=== PATIENT | female | born 1980 | race Caucasian/White ===

== ENCOUNTER 2021-02-22 12:15 | Inpatient (IN) | payer OTHER ==
[2021-02-22] MEDS ORDERED: Sodium Chloride 0.9% 10 ML Syringe FLUSH PRN (13:35)
[2021-02-22] MEDS ORDERED: Sodium Chloride 0.9% 2.5 ML Syringe FLUSH PRN (13:35)
[2021-02-22 14:36] LABS: BLOOD UREA NITROGEN,BUN 8 mg/dL (7.0-18.0); CHLORIDE,CL 96 mmol/L (98-107); GLUCOSE RANDOM 105 mg/dL (74-106); POTASSIUM,K 3.2 mmol/L (3.5-5.1); SODIUM,NA 135 mmol/L (136-145)
--- NOTE | 2021-02-22 14:49 | CR ---
INDICATION: COVID, hemoptysis. TECHNIQUE: Chest 1 view(s) COMPARISON: None. FINDINGS: Heart size is upper limits of normal. Diffuse patchy interstitial opacities bilaterally, right greater than left, consistent with COVID pneumonia. No significant pleural effusion, no definite pneumothorax. No acute chest wall abnormality. IMPRESSION: Diffuse patchy interstitial opacities bilaterally, right greater than left, consistent with COVID pneumonia. Dictated by Iraj Hudson MD @ 02/22/2021 2:47:43 PM (Electronically Signed)
[2021-02-22 14:53] LABS: CORONAVIRUS COVID-19 NAA POSITIVE (NEGATIVE); INFLUENZA A NAA NEGATIVE (NEGATIVE); INFLUENZA B NAA NEGATIVE (NEGATIVE)
--- NOTE | 2021-02-22 15:07 | EDM.PDOC ---
ED HPI GENERAL MEDICAL PROBLEM - General Chief Complaint: Respiratory Problem Stated Complaint: BLOOD IN MUCUS WHEN COUGHING Time Seen by Provider: 02/22/21 12:24 Source of Information: Reports: Patient History Limitations: Reports: No Limitations - History of Present Illness INITIAL COMMENTS - FREE TEXT/NARRATIVE: HISTORY AND PHYSICAL: History of present illness: Patient is a 40-year-old female who presents emergency room today with concern of worsening shortness of breath, fatigue, and blood-tinged sputum over the past 6 days. Patient states that she took an at home COVID-19 test and tested positive on Monday. Patient states that she has been having symptoms for a total of 6 days however. Patient states that she is vaccinated fully for Covid with Moderna back in May had her second vaccine but is due for a booster. Patient states that she is also had generalized body aches, intermittent fevers/chills, and low-grade headache. Patient states that she is also had a cough. Patient denies chest pain. Denies neck stiff ness, change in vision, syncope, or near syncope. Denies nausea, vomiting, abdominal pain, diarrhea, constipation, or dysuria. Has not noted any blood in urine or stool. Patient has been eating and drinking appropriately. Review of systems: As per history of present illness and below otherwise all systems reviewed and negative. Past medical history: As per history of present illness and as reviewed below otherwise noncontributory. Surgical history: As per history of present illness and as reviewed below otherwise noncontributory. Social history: See social history for further information Family history: As per history of present illness and as reviewed below otherwise noncontributory. Physical exam: General: Patient is alert, oriented, and in no acute distress. Patient sitting comfortably on exam table. Patient is hypoxic 86% on room air, placed on 3 L nasal cannula and satting 94%. Otherwise, vitally stable and reviewed by me. HEENT: Atraumatic, normocephalic, pupils equal and reactive bilaterally, negative for conjunctival pallor or scleral icterus, mucous membranes moist, throat clear, neck supple, nontender, trachea midline. No drooling or trismus noted. No meningeal signs. No hot potato voice noted. Lungs: Dry cough on exam with blood-tinged sputum. Otherwise, clear to auscultation, breath sounds equal bilaterally, chest nontender. Heart: S1S2, regular rate and rhythm without overt murmur Abdomen: Soft, nondistended, nontender. Negative for masses or hepatosplenomegaly. Negative for costovertebral tenderness. Pelvis: Stable nontender. Genitourinary: Deferred. Rectal: Deferred. Skin: Intact, warm, dry. No lesions or rashes noted. Extremities: Atraumatic, negative for cords or calf pain. Neurovascular unremarkable. Neuro: Awake, alert, oriented. Cranial nerves II through XII unremarkable. Cerebellum unremarkable. Motor and sensory unremarkable throughout. Exam nonfocal. Medical Decision Making: Patient is a 40-year-old female who presents emergency room today with concern of worsening shortness of breath, fatigue, cough, generalized body aches with concern of COVID-19 infection and blood-tinged sputum. Upon arrival to the ED, patient is hypoxic 86% on room air, she was placed on 3 L nasal cannula and satting 94%. She is otherwise breathing comfortably. She does not have a dry c ough on exam with blood-tinged sputum. Lungs are otherwise clear and exam remainder unremarkable. Will obtain cardiac evaluation, COVID-19/influenza testing, and reassess patient. See Dr. Montero's dictation for specific EKG interpretation. Otherwise, NSR without STEMI. CBC unremarkable. CMP shows mild hyponatremia at 135, hypokalemia at 3.2, and hypochloremia 96. Carbon dioxide slightly increased at 37. Corrected calcium mildly decreased at 8.1. AST elevated in isolation at 57. hCG negative. COVID-19 is positive. D-dimer is within normal limits. Chest x-ray shows diffuse patchy interstitial opacities bilaterally, right greater than left, consistent with Covid pneumonia. Upon reevaluation of patient, she remains vitally stable and comfortable on 3 L nasal cannula. Patient does drop back down to 8687% without oxygen. I did call and speak to the hospitalist on-call, Dr. Sanderson, and thoroughly discussed patient's case. Will admit to inpatient to Dr. Sanderson. Voices understanding and is agreeable to plan of care. Denies any further questions or concerns at this time. Diagnostics: EKG, CBC, CMP, Serum hcg, PT/INR/PTT, Ddimder, CXR, COVID/Flu Therapeutics: Remdesivir, Decadron Impression: COVID-19 pneumonia with hypoxia Plan: Admit to inpatient to Dr. Sanderson Definitive disposition and diagnosis as appropriate pending reevaluation and review of above. Headache Pain Score (Numeric/FACES): 5 - Related Data Allergies Allergy/AdvReac Type Severity Reaction Status Date / Time No Known Allergies Allergy Verified 02/22/21 12:47 Home Meds: Home Meds Escitalopram [Lexapro] 20 mg PO DAILY 02/22/21 [History] hydroCHLOROthiazide [Hydrochlorothiazide] 25 mg PO DAILY 02/22/21 [History] Past Medical History Psychiatric History: Reports: Other (See Below) Other Psychiatric History: Seasonal affective disorder - Infectious Disease History Infectious Disease History: Reports: Chicken Pox, Measles - Past Surgical History Female Surgical History: Reports: Hysterectomy Social & Family History - Family History Cardiac: Reports: Hypertension Endocrine/Metabolic: Reports: Diabetes, Type I - Caffeine Use Caffeine Use: Reports: Coffee - Recreational Drug Use Recreational Drug Use: No ED ROS GENERAL - Review of Systems Review Of Systems: Comprehensive ROS is negative, except as noted in HPI. ED EXAM, GENERAL - Physical Exam Exam: See Below (see dictation) Course - Vital Signs Last Recorded V/S: Last Vital Signs Temp 98.8 F 02/22/21 12:50 Pulse 93 02/22/21 12:50 Resp 18 02/22/21 12:50 BP 125/68 02/22/21 12:50 Pulse Ox 92 L 02/22/21 13:02 - Orders/Labs/Meds Orders: Active Orders 24 hr Category Date Time Status Admission Status [Patient Status] [ADT] Stat ADT 02/22/21 15:27 Ordered Cardiac Monitoring [RC] . DIRECTED Care 02/22/21 13:35 Active BILIRUBIN DIRECT [CHEM] DAILY Lab 02/22/21 15:15 Ordered BILIRUBIN DIRECT [CHEM] DAILY Lab 02/23/21 15:15 Ordered BILIRUBIN DIRECT [CHEM] DAILY Lab 02/24/21 15:15 Ordered BILIRUBIN DIRECT [CHEM] DAILY Lab 02/25/21 15:15 Ordered BILIRUBIN DIRECT [CHEM] DAILY Lab 02/26/21 15:15 Ordered COMPREHENSIVE METABOLIC PN,CMP [CHEM] DAILY Lab 02/22/21 15:15 Ordered COMPREHENSIVE METABOLIC PN,CMP [CHEM] DAILY Lab 02/23/21 15:15 Ordered COMPREHENSIVE METABOLIC PN,CMP [CHEM] DAILY Lab 02/24/21 15:15 Ordered COMPREHENSIVE METABOLIC PN,CMP [CHEM] DAILY Lab 02/25/21 15:15 Ordered COMPREHENSIVE METABOLIC PN,CMP [CHEM] DAILY Lab 02/26/21 15:15 Ordered Sodium Chloride 0.9% [Saline Flush] Med 02/22/21 13:35 Active 10 ml FLUSH ASDIRECTED PRN Sodium Chloride 0.9% [Saline Flush] Med 02/22/21 13:35 Active 2.5 ml FLUSH ASDIRECTED PRN Saline Lock Insert [OM.PC] Stat Oth 02/22/21 13:35 Ordered Medication Orders Sodium Chloride (Sodium Chloride 0.9% 10 Ml Syringe) 10 ml FLUSH ASDIRECTED PRN PRN Reason: Keep Vein Open Sodium Chloride (Sodium Chloride 0.9% 2.5 Ml Syringe) 2.5 ml FLUSH ASDIRECTED PRN PRN Reason: Keep Vein Open Labs: Laboratory Tests 02/22/21 02/22/21 02/22/21 Range/Units 13:59 13:59 13:59 WBC 5.79 (4.0-11.0) K/uL RBC 4.58 (4.30-5.90) M/uL Hgb 13.1 (12.0-16.0) g/dL Hct 40.6 (36.0-46.0) % MCV 88.6 (80.0-98.0) fL MCH 28.6 (27.0-32.0) pg MCHC 32.3 (31.0-37.0) g/dL RDW Std Deviation 49.3 (28.0-62.0) fl RDW Coeff of Wes 15 (11.0-15.0) % Plt Count 319 (150-400) K/uL MPV 9.90 (7.40-12.00) fL Neut % (Auto) 61.8 (48.0-80.0) % Lymph % (Auto) 33.7 (16.0-40.0) % [place] % (Auto) 4.3 (0.0-15.0) % Eos % (Auto) 0.0 (0.0-7.0) % Baso % (Auto) 0.2 (0.0-1.5) % Neut # (Auto) 3.6 (1.4-5.7) K/uL Lymph # (Auto) 2.0 (0.6-2.4) K/uL [place] # (Auto) 0.3 (0.0-0.8) K/uL Eos # (Auto) 0.0 (0.0-0.7) K/uL Baso # (Auto) 0.0 (0.0-0.1) K/uL Nucleated RBC % 0.0 /100WBC Nucleated RBCs # 0 K/uL INR APTT (18.6-31.3) SEC D-Dimer, Quantitative 0.43 (0.0-0.50) mg/L FEU Sodium 135 L (136-145) mmol/L Potassium 3.2 L (3.5-5.1) mmol/L Chloride 96 L (98-107) mmol/L Carbon Dioxide 37.0 H (21.0-32.0) mmol/L BUN 8 (7.0-18.0) mg/dL Creatinine 0.7 (0.6-1.0) mg/dL Est Cr Clr Drug Dosing 109.41 mL/min Estimated GFR (MDRD) > 60.0 ml/min Glucose 105 (74-106) mg/dL Calcium 7.9 L (8.5-10.1) mg/dL Total Bilirubin 0.4 (0.2-1.0) mg/dL AST 57 H (15-37) IU/L ALT 59 (14-63) IU/L Alkaline Phosphatase 103 (46-116) U/L Total Protein 7.7 (6.4-8.2) g/dL Albumin 3.2 L (3.4-5.0) g/dL Globulin 4.5 H (2.6-4.0) g/dL Albumin/Globulin Ratio 0.7 L (0.9-1.6) HCG, Qual (NEG) Influenza Type A RNA (NEGATIVE) Influenza Type B RNA (NEGATIVE) SARS-CoV-2 RNA (BING) (NEGATIVE) 02/22/21 02/22/21 02/22/21 Range/Units 13:59 13:59 14:01 WBC (4.0-11.0) K/uL RBC (4.30-5.90) M/uL Hgb (12.0-16.0) g/dL Hct (36.0-46.0) % MCV (80.0-98.0) fL MCH (27.0-32.0) pg MCHC (31.0-37.0) g/dL RDW Std Deviation (28.0-62.0) fl RDW Coeff of Wes (11.0-15.0) % Plt Count (150-400) K/uL MPV (7.40-12.00) fL Neut % (Auto) (48.0-80.0) % Lymph % (Auto) (16.0-40.0) % [place] % (Auto) (0.0-15.0) % Eos % (Auto) (0.0-7.0) % Baso % (Auto) (0.0-1.5) % Neut # (Auto) (1.4-5.7) K/uL Lymph # (Auto) (0.6-2.4) K/uL [place] # (Auto) (0.0-0.8) K/uL Eos # (Auto) (0.0-0.7) K/uL Baso # (Auto) (0.0-0.1) K/uL Nucleated RBC % /100WBC Nucleated RBCs # K/uL INR 1.01 APTT 30.8 (18.6-31.3) SEC D-Dimer, Quantitative (0.0-0.50) mg/L FEU Sodium (136-145) mmol/L Potassium (3.5-5.1) mmol/L Chloride (98-107) mmol/L Carbon Dioxide (21.0-32.0) mmol/L BUN (7.0-18.0) mg/dL Creatinine (0.6-1.0) mg/dL Est Cr Clr Drug Dosing mL/min Estimated GFR (MDRD) ml/min Glucose (74-106) mg/dL Calcium (8.5-10.1) mg/dL Total Bilirubin (0.2-1.0) mg/dL AST (15-37) IU/L ALT (14-63) IU/L Alkaline Phosphatase (46-116) U/L Total Protein (6.4-8.2) g/dL Albumin (3.4-5.0) g/dL Globulin (2.6-4.0) g/dL Albumin/Globulin Ratio (0.9-1.6) HCG, Qual NEGATIVE (NEG) Influenza Type A RNA NEGATIVE (NEGATIVE) Influenza Type B RNA NEGATIVE (NEGATIVE) SARS-CoV-2 RNA (BING) POSITIVE H (NEGATIVE) Meds: Medications Generic Name Dose Route Start Last Admin Trade Name Saqibq PRN Reason Stop Dose Admin Sodium Chloride 10 ml 02/22/21 13:35 Sodium Chloride 0.9% 10 Ml Syringe FLUSH ASDIRECTED PRN Keep Vein Open Sodium Chloride 2.5 ml 02/22/21 13:35 Sodium Chloride 0.9% 2.5 Ml Syringe FLUSH ASDIRECTED PRN Keep Vein Open Discontinued Medications Generic Name Dose Route Start Last Admin Trade Name Freq PRN Reason Stop Dose Admin Dexamethasone 10 mg 02/22/21 15:13 Dexamethasone 10 Mg/Ml Sdv IVPUSH 02/22/21 15:14 ONETIME ONE Remdesivir 200 mg/ Sodium 250 mls @ 250 mls/hr 02/22/21 15:13 Chloride IV 02/22/21 15:14 ONETIME ONE Departure - Departure Time of Disposition: 15:06 Disposition: Admitted As Inpatient 64 Clinical Impression: Pneumonia due to COVID-19 virus, Hypoxia - Discharge Information Forms: ED Department Discharge Additional Instructions: Sepsis Event Note (ED) - Evaluation Sepsis Screening Result: No Definite Risk - Focused Exam Vital Signs: Vital Signs Temp Pulse Resp BP Pulse Ox 02/22/21 13:02 92 L 02/22/21 13:00 88 L 02/22/21 12:50 98.8 F 93 18 125/68 92 L - My Orders Last 24 Hours: My Active Orders 02/22/21 13:35 Cardiac Monitoring [RC] . DIRECTED Sodium Chloride 0.9% [Saline Flush] 10 ml FLUSH ASDIRECTED PRN Sodium Chloride 0.9% [Saline Flush] 2.5 ml FLUSH ASDIRECTED PRN Saline Lock Insert [OM.PC] Stat 02/22/21 15:15 BILIRUBIN DIRECT [CHEM] DAILY COMPREHENSIVE METABOLIC PN,CMP [CHEM] DAILY 02/22/21 15:27 Admission Status [Patient Status] [ADT] Stat 02/23/21 15:15 BILIRUBIN DIRECT [CHEM] DAILY COMPREHENSIVE METABOLIC PN,CMP [CHEM] DAILY 02/24/21 15:15 BILIRUBIN DIRECT [CHEM] DAILY COMPREHENSIVE METABOLIC PN,CMP [CHEM] DAILY 02/25/21 15:15 BILIRUBIN DIRECT [CHEM] DAILY COMPREHENSIVE METABOLIC PN,CMP [CHEM] DAILY 02/26/21 15:15 BILIRUBIN DIRECT [CHEM] DAILY COMPREHENSIVE METABOLIC PN,CMP [CHEM] DAILY - Assessment/Plan Last 24 Hours: My Active Orders 02/22/21 13:35 Cardiac Monitoring [RC] . DIRECTED Sodium Chloride 0.9% [Saline Flush] 10 ml FLUSH ASDIRECTED PRN Sodium Chloride 0.9% [Saline Flush] 2.5 ml FLUSH ASDIRECTED PRN Saline Lock Insert [OM.PC] Stat 02/22/21 15:15 BILIRUBIN DIRECT [CHEM] DAILY COMPREHENSIVE METABOLIC PN,CMP [CHEM] DAILY 02/22/21 15:27 Admission Status [Patient Status] [ADT] Stat 02/23/21 15:15 BILIRUBIN DIRECT [CHEM] DAILY COMPREHENSIVE METABOLIC PN,CMP [CHEM] DAILY 02/24/21 15:15 BILIRUBIN DIRECT [CHEM] DAILY COMPREHENSIVE METABOLIC PN,CMP [CHEM] DAILY 02/25/21 15:15 BILIRUBIN DIRECT [CHEM] DAILY COMPREHENSIVE METABOLIC PN,CMP [CHEM] DAILY 02/26/21 15:15 BILIRUBIN DIRECT [CHEM] DAILY COMPREHENSIVE METABOLIC PN,CMP [CHEM] DAILY
[2021-02-22] MEDS ORDERED: REMDESIVIR 200 MG in Sodium Chloride 0.9% 250 ML IV ONE (15:13)
[2021-02-22] MEDS ORDERED: Dexamethasone 10 MG/ML SDV IVPUSH ONE (15:13)
--- NOTE | 2021-02-22 15:24 | PCM.EKG ---
#1 Interpretation EKG Date: 02/22/21 Time: 13:45 Rhythm: NSR Rate (Beats/Min): 88 Wall: Normal P-Wave: Present QRS: Normal ST-T: Normal QT: Normal Comparison: NA - No Prior EKG EKG Interpretation Comments: Sinus Rhythm
--- NOTE | 2021-02-22 15:59 | PCM.HP.2 ---
H&P History of Present Illness - General Date of Service: 02/22/21 Admit Problem/Dx: Admission Diagnosis/Problem Admission Diagnosis/Problem Hypoxia - History of Present Illness Initial Comments - Free Text/Narative: 40-year-old female who is Covid positive presents to the ER complaining of worsening shortness of breath and fatigue. Patient tested positive on a home Covid test. SARS-CoV-2 test in the ER is positive. Patient also complains of sputum production for 6 days. Patient dorsal myalgias and fatigue. Patient is fully vaccinated with Moderna. Patient did not receive booster. Patient has fever/chills. Denies chest pain, palpitations, headaches, lightheadedness, LOC, N/V, abdominal pain, diarrhea. Oxygen saturation was 85% on RA. Patient is on 3L saturating >90%. Headache Pain Score (Numeric/FACES): 5 - Related Data Allergies/Adverse Reactions: Allergies Allergy/AdvReac Type Severity Reaction Status Date / Time No Known Allergies Allergy Verified 02/22/21 17:00 Home Medications: Home Meds Escitalopram [Lexapro] 20 mg PO DAILY 02/22/21 [History] hydroCHLOROthiazide [Hydrochlorothiazide] 25 mg PO DAILY 02/22/21 [History] Past Medical History Psychiatric History: Reports: Other (See Below) Other Psychiatric History: Seasonal affective disorder - Infectious Disease History Infectious Disease History: Reports: Chicken Pox, Measles - Past Surgical History Female Surgical History: Reports: Hysterectomy Social & Family History - Family History Cardiac: Reports: Hypertension Endocrine/Metabolic: Reports: Diabetes, Type I - Caffeine Use Caffeine Use: Reports: Coffee - Recreational Drug Use Recreational Drug Use: No H&P Review of Systems - Review of Systems: Review Of Systems: See Below General: Reports: Fever, Fatigue. Denies: Chills HEENT: Reports: Sore Throat Pulmonary: Reports: Shortness of Breath, Cough, Hemoptysis. Denies: Wheezing Cardiovascular: Denies: Chest Pain, Palpitations Gastrointestinal: Denies: Abdominal Pain, Constipation, Diarrhea, Nausea, Vo miting Genitourinary: Denies: Dysuria Musculoskeletal: Denies: Leg Pain Skin: Denies: Rash Neurological: Denies: Confusion, Dizziness Exam - Exam Exam: See Below - Vital Signs Vital Signs: Last Vital Signs Temp 98.8 F 02/22/21 12:50 Pulse 93 02/22/21 12:50 Resp 18 02/22/21 12:50 BP 125/68 02/22/21 12:50 Pulse Ox 92 L 02/22/21 13:02 Weight: 325 lb - Exam Quality Assessment: Supplemental Oxygen General: Alert, Oriented, Cooperative, Mild Distress HEENT: Conjunctiva Clear, EACs Clear, Mucosa Moist & [place]: Supple, Trachea Midline Lungs: Decreased Breath Sounds Cardiovascular: Regular Rate, Regular Rhythm GI/Abdominal Exam: Normal Bowel Sounds, Soft, Non-Tender Back Exam: Normal Inspection Extremities: Normal Inspection, No Pedal Edema. No: Leg Pain Peripheral Pulses: 2+: Dorsalis Pedis (L), Dorsalis Pedis (R) Skin: Warm, Dry, Intact Neuro Extensive - Motor, Sensory, Reflexes: CN II-XII Intact - Patient Data Lab Results Last 24 hrs: Laboratory Results - last 24 hr 02/22/21 02/22/21 02/22/21 Range/Units 13:59 13:59 13:59 WBC 5.79 (4.0-11.0) K/uL RBC 4.58 (4.30-5.90) M/uL Hgb 13.1 (12.0-16.0) g/dL Hct 40.6 (36.0-46.0) % MCV 88.6 (80.0-98.0) fL MCH 28.6 (27.0-32.0) pg MCHC 32.3 (31.0-37.0) g/dL RDW Std Deviation 49.3 (28.0-62.0) fl RDW Coeff of Wes 15 (11.0-15.0) % Plt Count 319 (150-400) K/uL MPV 9.90 (7.40-12.00) fL Neut % (Auto) 61.8 (48.0-80.0) % Lymph % (Auto) 33.7 (16.0-40.0) % [place] % (Auto) 4.3 (0.0-15.0) % Eos % (Auto) 0.0 (0.0-7.0) % Baso % (Auto) 0.2 (0.0-1.5) % Neut # (Auto) 3.6 (1.4-5.7) K/uL Lymph # (Auto) 2.0 (0.6-2.4) K/uL [place] # (Auto) 0.3 (0.0-0.8) K/uL Eos # (Auto) 0.0 (0.0-0.7) K/uL Baso # (Auto) 0.0 (0.0-0.1) K/uL Nucleated RBC % 0.0 /100WBC Nucleated RBCs # 0 K/uL INR APTT (18.6-31.3) SEC D-Dimer, Quantitative 0.43 (0.0-0.50) mg/L FEU Sodium 135 L (136-145) mmol/L Potassium 3.2 L (3.5-5.1) mmol/L Chloride 96 L (98-107) mmol/L Carbon Dioxide 37.0 H (21.0-32.0) mmol/L BUN 8 (7.0-18.0) mg/dL Creatinine 0.7 (0.6-1.0) mg/dL Est Cr Clr Drug Dosing 109.41 mL/min Estimated GFR (MDRD) > 60.0 ml/min Glucose 105 (74-106) mg/dL Calcium 7.9 L (8.5-10.1) mg/dL Total Bilirubin 0.4 (0.2-1.0) mg/dL AST 57 H (15-37) IU/L ALT 59 (14-63) IU/L Alkaline Phosphatase 103 (46-116) U/L Total Protein 7.7 (6.4-8.2) g/dL Albumin 3.2 L (3.4-5.0) g/dL Globulin 4.5 H (2.6-4.0) g/dL Albumin/Globulin Ratio 0.7 L (0.9-1.6) HCG, Qual (NEG) Influenza Type A RNA (NEGATIVE) Influenza Type B RNA (NEGATIVE) SARS-CoV-2 RNA (BING) (NEGATIVE) 02/22/21 02/22/21 02/22/21 Range/Units 13:59 13:59 14:01 WBC (4.0-11.0) K/uL RBC (4.30-5.90) M/uL Hgb (12.0-16.0) g/dL Hct (36.0-46.0) % MCV (80.0-98.0) fL MCH (27.0-32.0) pg MCHC (31.0-37.0) g/dL RDW Std Deviation (28.0-62.0) fl RDW Coeff of Wes (11.0-15.0) % Plt Count (150-400) K/uL MPV (7.40-12.00) fL Neut % (Auto) (48.0-80.0) % Lymph % (Auto) (16.0-40.0) % [place] % (Auto) (0.0-15.0) % Eos % (Auto) (0.0-7.0) % Baso % (Auto) (0.0-1.5) % Neut # (Auto) (1.4-5.7) K/uL Lymph # (Auto) (0.6-2.4) K/uL [place] # (Auto) (0.0-0.8) K/uL Eos # (Auto) (0.0-0.7) K/uL Baso # (Auto) (0.0-0.1) K/uL Nucleated RBC % /100WBC Nucleated RBCs # K/uL INR 1.01 APTT 30.8 (18.6-31.3) SEC D-Dimer, Quantitative (0.0-0.50) mg/L FEU Sodium (136-145) mmol/L Potassium (3.5-5.1) mmol/L Chloride (98-107) mmol/L Carbon Dioxide (21.0-32.0) mmol/L BUN (7.0-18.0) mg/dL Creatinine (0.6-1.0) mg/dL Est Cr Clr Drug Dosing mL/min Estimated GFR (MDRD) ml/min Glucose (74-106) mg/dL Calcium (8.5-10.1) mg/dL Total Bilirubin (0.2-1.0) mg/dL AST (15-37) IU/L ALT (14-63) IU/L Alkaline Phosphatase (46-116) U/L Total Protein (6.4-8.2) g/dL Albumin (3.4-5.0) g/dL Globulin (2.6-4.0) g/dL Albumin/Globulin Ratio (0.9-1.6) HCG, Qual NEGATIVE (NEG) Influenza Type A RNA NEGATIVE (NEGATIVE) Influenza Type B RNA NEGATIVE (NEGATIVE) SARS-CoV-2 RNA (BING) POSITIVE H (NEGATIVE) Result Diagrams: 02/22/21 13:59 02/22/21 15:26 Sepsis Event Note - Evaluation Sepsis Screening Result: No Definite Risk - Focused Exam Vital Signs: Vital Signs Temp Pulse Resp BP Pulse Ox 02/22/21 13:02 92 L 02/22/21 13:00 88 L 02/22/21 12:50 98.8 F 93 18 125/68 92 L - Problem List (1) Hypoxia SNOMED Code(s): 743898269 ICD Code: R09.02 - HYPOXEMIA Status: Acute Current Visit: No (2) Pneumonia due to COVID-19 virus SNOMED Code(s): 358740597487712226 ICD Code: U07.1 - COVID-19; J12.82 - PNEUMONIA DUE TO CORONAVIRUS DISEASE 2019 Status: Acute Current Visit: No Problem List Initiated/Reviewed/Updated: Yes Orders Last 24hrs: Active Orders 24 hr Category Date Time Status Admission Status [Patient Status] [ADT] Stat ADT 02/22/21 15:27 Active Cardiac Monitoring [RC] . DIRECTED Care 02/22/21 13:35 Active BILIRUBIN DIRECT [CHEM] DAILY Lab 02/22/21 15:26 Received BILIRUBIN DIRECT [CHEM] DAILY Lab 02/23/21 15:15 Ordered BILIRUBIN DIRECT [CHEM] DAILY Lab 02/24/21 15:15 Ordered BILIRUBIN DIRECT [CHEM] DAILY Lab 02/25/21 15:15 Ordered BILIRUBIN DIRECT [CHEM] DAILY Lab 02/26/21 15:15 Ordered COMPREHENSIVE METABOLIC PN,CMP [CHEM] DAILY Lab 02/22/21 15:26 Received COMPREHENSIVE METABOLIC PN,CMP [CHEM] DAILY Lab 02/23/21 15:15 Ordered COMPREHENSIVE METABOLIC PN,CMP [CHEM] DAILY Lab 02/24/21 15:15 Ordered COMPREHENSIVE METABOLIC PN,CMP [CHEM] DAILY Lab 02/25/21 15:15 Ordered COMPREHENSIVE METABOLIC PN,CMP [CHEM] DAILY Lab 02/26/21 15:15 Ordered Sodium Chloride 0.9% [Saline Flush] Med 02/22/21 13:35 Active 10 ml FLUSH ASDIRECTED PRN Sodium Chloride 0.9% [Saline Flush] Med 02/22/21 13:35 Active 2.5 ml FLUSH ASDIRECTED PRN Saline Lock Insert [OM.PC] Stat Oth 02/22/21 13:35 Ordered Medication Orders Sodium Chloride (Sodium Chloride 0.9% 10 Ml Syringe) 10 ml FLUSH ASDIRECTED PRN PRN Reason: Keep Vein Open Sodium Chloride (Sodium Chloride 0.9% 2.5 Ml Syringe) 2.5 ml FLUSH ASDIRECTED PRN PRN Reason: Keep Vein Open Assessment/Plan Comment:: Hypoxia secondary to COVID-19 PNA: -Remdesivir -Dexamethasone -Combivent. Albuterol. -Oxygen Therapy. -
[2021-02-22] MEDS ORDERED: Potassium Chloride 20 MEQ Tab.ER PO ONE (16:05)
[2021-02-22] MEDS ORDERED: Acetaminophen 325 MG Tab PO PRN (16:05)
[2021-02-22] MEDS ORDERED: Polyethylene Glycol 3350 Powder 17 GM Packet PO PRN (16:05)
[2021-02-22] MEDS ORDERED: Albuterol 0.083% 2.5 MG/3 ML Neb Soln NEB PRN (16:05)
[2021-02-22] MEDS ORDERED: Ondansetron 4 MG/2 ML SDV IVPUSH SCH (16:15)
[2021-02-22 16:38] LABS: BLOOD UREA NITROGEN,BUN 9 mg/dL (7.0-18.0); CARBON DIOXIDE,CO2 33.8 mmol/L (21.0-32.0); CHLORIDE,CL 96 mmol/L (98-107); GLUCOSE RANDOM 100 mg/dL (74-106); POTASSIUM,K 3.2 mmol/L (3.5-5.1); SODIUM,NA 135 mmol/L (136-145)
[2021-02-22] MEDS ORDERED: Ondansetron 4 MG/2 ML SDV IVPUSH PRN (17:08)
[2021-02-22] MEDS: Albuterol/Ipratropium 4 GM Inhalation Spray INH SCH ×3 (17:24→23:48)
[2021-02-22] MEDS ORDERED: Albuterol/Ipratropium 3.0-0.5 MG/3 ML Neb Soln NEB SCH (18:00)
[2021-02-23] MEDS: Albuterol/Ipratropium 4 GM Inhalation Spray INH SCH ×2 (04:30→09:43)
[2021-02-23] MEDS ORDERED: Dexamethasone 4 MG Tab PO SCH (09:00)
--- NOTE | 2021-02-23 10:56 | PCM.DCSUM1 ---
Discharge Summary - Hospital Course Free Text/Narrative:: 40-year-old female who is Covid positive presented to the ER complaining of worsening shortness of breath and fatigue. Patient tested positive on a home Covid test. SARS-CoV-2 test in the ER is positive. Patient is fully vaccinated with Moderna. Patient did not receive booster. Patient was admitted for COVID- 19, she received 2 days of dexamethasone and remdesivir. Patient is stable on 2 L nasal cannula. Patient is being discharged on dexamethasone and home oxygen, 2 L. Return precautions given. Patient denies chest pain, palpitations, headaches, lightheadedness, LOC, N/V, abdominal pain, diarrhea. - Discharge Data Discharge Date: 02/23/21 Discharge Disposition: Home, Self-Care 01 Condition: Stable - Referral to Home Health Primary Care Physician: Palmer Chew MD - Discharge Diagnosis/Problem(s) (1) Hypoxia SNOMED Code(s): 440966194 ICD Code: R09.02 - HYPOXEMIA Status: Acute Current Visit: No (2) Pneumonia due to COVID-19 virus SNOMED Code(s): 160505641666479867 ICD Code: U07.1 - COVID-19; J12.82 - PNEUMONIA DUE TO CORONAVIRUS DISEASE 2019 Status: Acute Current Visit: No - Patient Instructions Diet: Regular Diet as Tolerated Notify Provider of: Fever Other/Special Instructions: If you experience worsening cough, worsening shortness of breath, increased oxygen demand, chest pain, palpitation, fever, chills please seek medical attention immediately. You have been given a prescription for 8 days of dexamethasone, the steroid you received. Please take 6 mg daily for 8 days. You are being sent home on home oxygen. Please use 2 L nasal cannula. Please speak with your primary care provider regarding continued use of oxygen. - Discharge Plan *PRESCRIPTION DRUG MONITORING PROGRAM REVIEWED*: Not Applicable *COPY OF PRESCRIPTION DRUG MONITORING REPORT IN PATIENT [place]APHA: Not Applicable Prescriptions/Med Rec: Albuterol Sulfate [Albuterol Sulfate Hfa] 8.5 gm IH Q2HR #1 hfa.aer.ad dexAMETHasone [Dexamethasone] 6 mg PO DAILY 8 Days #12 tab Home Medications: Home Meds Escitalopram [Lexapro] 20 mg PO DAILY 02/22/21 [History] hydroCHLOROthiazide [Hydrochlorothiazide] 25 mg PO DAILY 02/22/21 [History] Albuterol Sulfate [Albuterol Sulfate Hfa] 8.5 gm IH Q2HR #1 hfa.aer.ad 02/23/21 [Rx] dexAMETHasone [Dexamethasone] 6 mg PO DAILY 8 Days #12 tab 02/23/21 [Rx] Oxygen Therapy Mode: Nasal Cannula Oxygen Flow Rate (L/min): 2 Patient Handouts: 10 Things You Can Do to Manage Your COVID-19 Symptoms at Home - [facility] (09/18/2020), COVID-19: How to Protect Yourself and Others - [facility], Frequently Asked Questions About COVID-19 Vaccination - [facility] (11/06/2020), In fection Prevention in the Home Referrals: Palmer Chew MD [Primary Care Provider] - 03/10/21 12:30 pm - Discharge Summary/Plan Comment DC Time >30 min.: Yes Total # of Minutes for Discharge Time: 45 - General Info Admission Dx/Problem (Free Text: Admission Diagnosis/Problem Admission Diagnosis/Problem Hypoxia - Review of Systems General: Denies: Fever, Chills Pulmonary: Reports: Shortness of Breath, Cough Cardiovascular: Denies: Chest Pain, Palpitations Gastrointestinal: Denies: Abdominal Pain, Diarrhea, Nausea, Vomiting Genitourinary: Denies: Dysuria Skin: Denies: Rash - Patient Data Vitals - Most Recent: Last Vital Signs Temp 98 F 02/23/21 08:00 Pulse 80 02/23/21 08:00 Resp 16 02/23/21 08:00 BP 125/71 02/23/21 08:00 Pulse Ox 91 L 02/23/21 08:00 Weight - Most Recent: 157 lb I&O - Last 24 hours: Intake & Output 02/22/21 02/23/21 02/23/21 22:59 06:59 14:59 Intake Total 900 Balance 900 Lab Results - Last 24 hrs: Laboratory Results - last 24 hr 02/22/21 02/22/21 02/22/21 Range/Units 13:59 13:59 13:59 WBC 5.79 (4.0-11.0) K/uL RBC 4.58 (4.30-5.90) M/uL Hgb 13.1 (12.0-16.0) g/dL Hct 40.6 (36.0-46.0) % MCV 88.6 (80.0-98.0) fL MCH 28.6 (27.0-32.0) pg MCHC 32.3 (31.0-37.0) g/dL RDW Std Deviation 49.3 (28.0-62.0) fl RDW Coeff of Wes 15 (11.0-15.0) % Plt Count 319 (150-400) K/uL MPV 9.90 (7.40-12.00) fL Neut % (Auto) 61.8 (48.0-80.0) % Lymph % (Auto) 33.7 (16.0-40.0) % [place] % (Auto) 4.3 (0.0-15.0) % Eos % (Auto) 0.0 (0.0-7.0) % Baso % (Auto) 0.2 (0.0-1.5) % Neut # (Auto) 3.6 (1.4-5.7) K/uL Lymph # (Auto) 2.0 (0.6-2.4) K/uL [place] # (Auto) 0.3 (0.0-0.8) K/uL Eos # (Auto) 0.0 (0.0-0.7) K/uL Baso # (Auto) 0.0 (0.0-0.1) K/uL Nucleated RBC % 0.0 /100WBC Nucleated RBCs # 0 K/uL INR APTT (18.6-31.3) SEC D-Dimer, Quantitative 0.43 (0.0-0.50) mg/L FEU Sodium 135 L (136-145) mmol/L Potassium 3.2 L (3.5-5.1) mmol/L Chloride 96 L (98-107) mmol/L Carbon Dioxide 37.0 H (21.0-32.0) mmol/L BUN 8 (7.0-18.0) mg/dL Creatinine 0.7 (0.6-1.0) mg/dL Est Cr Clr Drug Dosing 109.41 mL/min Estimated GFR (MDRD) > 60.0 ml/min Glucose 105 (74-106) mg/dL Calcium 7.9 L (8.5-10.1) mg/dL Total Bilirubin 0.4 (0.2-1.0) mg/dL Direct Bilirubin (0.0-0.5) mg/dL AST 57 H (15-37) IU/L ALT 59 (14-63) IU/L Alkaline Phosphatase 103 (46-116) U/L Total Protein 7.7 (6.4-8.2) g/dL Albumin 3.2 L (3.4-5.0) g/dL Globulin 4.5 H (2.6-4.0) g/dL Albumin/Globulin Ratio 0.7 L (0.9-1.6) HCG, Qual (NEG) Influenza Type A RNA (NEGATIVE) Influenza Type B RNA (NEGATIVE) SARS-CoV-2 RNA (BING) (NEGATIVE) 02/22/21 02/22/21 02/22/21 Range/Units 13:59 13:59 14:01 WBC (4.0-11.0) K/uL RBC (4.30-5.90) M/uL Hgb (12.0-16.0) g/dL Hct (36.0-46.0) % MCV (80.0-98.0) fL MCH (27.0-32.0) pg MCHC (31.0-37.0) g/dL RDW Std Deviation (28.0-62.0) fl RDW Coeff of Wes (11.0-15.0) % Plt Count (150-400) K/uL MPV (7.40-12.00) fL Neut % (Auto) (48.0-80.0) % Lymph % (Auto) (16.0-40.0) % [place] % (Auto) (0.0-15.0) % Eos % (Auto) (0.0-7.0) % Baso % (Auto) (0.0-1.5) % Neut # (Auto) (1.4-5.7) K/uL Lymph # (Auto) (0.6-2.4) K/uL [place] # (Auto) (0.0-0.8) K/uL Eos # (Auto) (0.0-0.7) K/uL Baso # (Auto) (0.0-0.1) K/uL Nucleated RBC % /100WBC Nucleated RBCs # K/uL INR 1.01 APTT 30.8 (18.6-31.3) SEC D-Dimer, Quantitative (0.0-0.50) mg/L FEU Sodium (136-145) mmol/L Potassium (3.5-5.1) mmol/L Chloride (98-107) mmol/L Carbon Dioxide (21.0-32.0) mmol/L BUN (7.0-18.0) mg/dL Creatinine (0.6-1.0) mg/dL Est Cr Clr Drug Dosing mL/min Estimated GFR (MDRD) ml/min Glucose (74-106) mg/dL Calcium (8.5-10.1) mg/dL Total Bilirubin (0.2-1.0) mg/dL Direct Bilirubin (0.0-0.5) mg/dL AST (15-37) IU/L ALT (14-63) IU/L Alkaline Phosphatase (46-116) U/L Total Protein (6.4-8.2) g/dL Albumin (3.4-5.0) g/dL Globulin (2.6-4.0) g/dL Albumin/Globulin Ratio (0.9-1.6) HCG, Qual NEGATIVE (NEG) Influenza Type A RNA NEGATIVE (NEGATIVE) Influenza Type B RNA NEGATIVE (NEGATIVE) SARS-CoV-2 RNA (BING) POSITIVE H (NEGATIVE) 02/22/21 02/23/21 Range/Units 15:26 05:45 WBC 4.05 (4.0-11.0) K/uL RBC 4.70 (4.30-5.90) M/uL Hgb 13.9 (12.0-16.0) g/dL Hct 41.6 (36.0-46.0) % MCV 88.5 (80.0-98.0) fL MCH 29.6 (27.0-32.0) pg MCHC 33.4 (31.0-37.0) g/dL RDW Std Deviation 48.5 (28.0-62.0) fl RDW Coeff of Wes 15 (11.0-15.0) % Plt Count 316 (150-400) K/uL MPV 10.00 (7.40-12.00) fL Neut % (Auto) (48.0-80.0) % Lymph % (Auto) (16.0-40.0) % [place] % (Auto) (0.0-15.0) % Eos % (Auto) (0.0-7.0) % Baso % (Auto) (0.0-1.5) % Neut # (Auto) (1.4-5.7) K/uL Lymph # (Auto) (0.6-2.4) K/uL [place] # (Auto) (0.0-0.8) K/uL Eos # (Auto) (0.0-0.7) K/uL Baso # (Auto) (0.0-0.1) K/uL Nucleated RBC % 0.0 /100WBC Nucleated RBCs # 0 K/uL INR APTT (18.6-31.3) SEC D-Dimer, Quantitative (0.0-0.50) mg/L FEU Sodium 135 L (136-145) mmol/L Potassium 3.2 L (3.5-5.1) mmol/L Chloride 96 L (98-107) mmol/L Carbon Dioxide 33.8 H (21.0-32.0) mmol/L BUN 9 (7.0-18.0) mg/dL Creatinine 0.7 (0.6-1.0) mg/dL Est Cr Clr Drug Dosing 109.41 mL/min Estimated GFR (MDRD) > 60.0 ml/min Glucose 100 (74-106) mg/dL Calcium 8.2 L (8.5-10.1) mg/dL Total Bilirubin 0.4 (0.2-1.0) mg/dL Direct Bilirubin 0.10 (0.0-0.5) mg/dL AST 64 H (15-37) IU/L ALT 65 H (14-63) IU/L Alkaline Phosphatase 101 (46-116) U/L Total Protein 7.7 (6.4-8.2) g/dL Albumin 3.1 L (3.4-5.0) g/dL Globulin 4.6 H (2.6-4.0) g/dL Albumin/Globulin Ratio 0.7 L (0.9-1.6) HCG, Qual (NEG) Influenza Type A RNA (NEGATIVE) Influenza Type B RNA (NEGATIVE) SARS-CoV-2 RNA (BING) (NEGATIVE) Med Orders - Current: Current Medications Acetaminophen (Acetaminophen 325 Mg Tab) 650 mg PO Q4H PRN PRN Reason: Pain (Mild 1-3)/fever Albuterol (Albuterol 0.083% 2.5 Mg/3 Ml Neb Soln) 2.5 mg NEB Q2H PRN PRN Reason: Shortness Of Breath/wheezing Albuterol/Ipratropium (Albuterol/Ipratropium 4 Gm Inhalation [place]) 0 gm INH Q4H [facility] Last Admin: 02/23/21 09:43 Dose: 1 puff Documented by: Dexamethasone (Dexamethasone 4 Mg Tab) 6 mg PO DAILY [facility] Last Admin: 02/23/21 09:04 Dose: 6 mg Documented by: Remdesivir 100 mg/ Sodium (Chloride) 100 mls @ 100 mls/hr IV Q24H [facility] Stop: 02/26/21 17:59 Ondansetron HCl (Ondansetron 4 Mg/2 Ml Sdv) 4 mg IVPUSH Q6H PRN PRN Reason: Nausea Polyethylene Glycol (Polyethylene Glycol 3350 Powder 17 Gm Packet) 17 gm PO DAILY PRN PRN Reason: Constipation Sodium Chloride (Sodium Chloride 0.9% 10 Ml Syringe) 10 ml FLUSH ASDIRECTED PRN PRN Reason: Keep Vein Open Last Admin: 02/22/21 16:19 Dose: 10 ml Documented by: Sodium Chloride (Sodium Chloride 0.9% 2.5 Ml Syringe) 2.5 ml FLUSH ASDIRECTED PRN PRN Reason: Keep Vein Open Last Admin: 02/22/21 16:19 Dose: 2.5 ml Documented by: Discontinued Medications Albuterol/Ipratropium (Albuterol/Ipratropium 3.0-0.5 Mg/3 Ml Neb Soln) 3 ml NEB Q6HRRT [facility] Dexamethasone (Dexamethasone 10 Mg/Ml Sdv) 10 mg IVPUSH ONETIME ONE Stop: 02/22/21 15:14 Last Admin: 02/22/21 16:17 Dose: 10 mg Documented by: Remdesivir 200 mg/ Sodium (Chloride) 250 mls @ 250 mls/hr IV ONETIME ONE Stop: 02/22/21 15:14 Last Admin: 02/22/21 16:39 Dose: 250 mls/hr Documented by: Ondansetron HCl (Ondansetron 4 Mg/2 Ml Sdv) 4 mg IVPUSH Q6H [facility] Last Admin: 02/22/21 17:12 Dose: Not Given Documented by: Potassium Chloride (Potassium Chloride 20 Meq Tab.Er) 40 meq PO ONETIME ONE Stop: 02/22/21 16:06 Last Admin: 02/22/21 16:17 Dose: 40 meq Documented by: - Exam Quality Assessment: Reports: Supplemental Oxygen General: Reports: Alert, Oriented, Cooperative, No Acute Distress HEENT: Reports: Pupils Equal, Pupils Reactive Neck: Reports: Supple, Trachea Midline Lungs: Reports: Clear to Auscultation, Decreased Breath Sounds Cardiovascular: Reports: Regular Rate, Regular Rhythm GI/Abdominal Exam: Normal Bowel Sounds, Soft, Non-Tender Back Exam: Reports: Normal Inspection Extremities: Normal Inspection, Normal Range of Motion, Non-Tender, No Pedal Edema Skin: Reports: Warm, Dry, Intact Neurological: Reports: No New Focal Deficit
[2021-02-23] MEDS ORDERED: REMDESIVIR 100 MG in Sodium Chloride 0.9% 100 ML IV SCH (17:00)
== END 2021-02-23 15:10 | disposition home or self-care (01) | DRG 177 ==
LOC: MW.ED 12:15 → MW.MS 15:27
PROVIDERS: ADMIT Hospitalist; ATTEND Hospitalist
PROC: XW033E5 Introduction of Remdesivir Anti-infective into Peripheral Vein, Percutaneous Approach, New Technology Group 5 (ICD-10-PCS; principal; 2021-02-22)
PROC: 3E0333Z Introduction of Anti-inflammatory into Peripheral Vein, Percutaneous Approach (ICD-10-PCS; 2021-02-22)
PROC: 3E0DX3Z Introduction of Anti-inflammatory into Mouth and Pharynx, External Approach (ICD-10-PCS; 2021-02-23)
DX: U07.1 COVID-19 (principal); J12.82 Pneumonia due to coronavirus disease 2019; E87.1 Hypo-osmolality and hyponatremia; E87.6 Hypokalemia; E87.8 Other disorders of electrolyte and fluid balance, not elsewhere classified; Z86.19 Personal history of other infectious and parasitic diseases; Z90.710 Acquired absence of both cervix and uterus
CPT/HCPCS: 0240U; 36415; 71046; 71046-26; 80053; 82248; 84703; 85025; 85027; 85379; 85610; 85730; 99285-25; A9270-GY; J1100; J7050; J8540